=== PATIENT | female | born 1970 | race Caucasian/White ===

== ENCOUNTER 2016-09-15 00:41 | Inpatient (IN) | payer OTHER ==
[2016-09-15] VITALS (19 sets, daily range): BP systolic 100–127; BP diastolic 53–80; PULSE 60–85; RESP 11–25; TEMP 98.1; Ht 152.4 cm; Wt 65.5 kg
[~2016-09-15] VITALS: Ht 152.4 cm; Wt 65.5 kg
[~2016-09-15 00:41] MED LIST: SYN15 PO
[2016-09-15] MEDS ORDERED: ONDANSETRON 4 MG INJ IV STA (03:34)
[2016-09-15] MEDS ORDERED: morphine 4 MG/ML VIAL IV STA (03:34)
[2016-09-15] MEDS ORDERED: SOD CHLORIDE 0.9% 500 ML IV STA (03:34)
[2016-09-15 04:43] LABS: ADD SCAN DIFF NO
[2016-09-15 04:51] LABS: BASOPHILS % 0.2 % (0.0-2.0); EOSINOPHILS # 0.1 10^3/ul (0.0-0.5); EOSINOPHILS % 0.7 % (0.0-7.0); HEMATOCRIT 37.5 % (37.0-47.0); HEMOGLOBIN 12.8 g/dl (12.0-16.0); LYMPHOCYTES # 2.3 10^3/ul (0.8-2.9); LYMPHOCYTES % 26.3 % (15.0-51.0); MEAN CORPUSCULAR HEMOGLOBIN 31.1 pg (29.0-33.0); MEAN CORPUSCULAR HGB CONC 34.1 g/dl (32.0-37.0); MEAN PLATELET VOLUME 9.5 fl (7.4-10.4); MONOCYTE # 0.7 10^3/ul (0.3-0.9); MONOCYTES % 7.8 % (0.0-11.0); NEUTROPHIL # 5.8 10^3/ul (1.6-7.5); NEUTROPHILS % 64.8 % (39.0-77.0); PLATELET COUNT 292 10^3/UL (140-415); RED BLOOD COUNT 4.12 10^6/ul (4.20-5.40); RED CELL DISTRIBUTION WIDTH 11.9 % (11.5-14.5); WHITE BLOOD COUNT 8.9 10^3/ul (4.8-10.8)
[2016-09-15 04:53] LABS: ADD UMIC YES; URINE BILIRUBIN (Dip) NEGATIVE (NEGATIVE); URINE BLOOD (Dip) 1+ (NEGATIVE); URINE COLOR LT. YELLOW (YELLOW); URINE GLUCOSE (Dip) NEGATIVE (NEGATIVE); URINE KETONES (Dip) NEGATIVE (NEGATIVE); URINE LEUKOCYTE ESTERASE (Dip) NEGATIVE (NEGATIVE); URINE NITRITE (Dip) NEGATIVE (NEGATIVE); URINE TOTAL PROTEIN (Dip) NEGATIVE (NEGATIVE); URINE UROBILINOGEN (Dip) 0.2 E.U./dL (0.1-1.0)
--- NOTE | 2016-09-15 04:55 | ERA ---
ER Documentation Chief Complaint Date/Time DATE: 09/15/16 TIME: 04:54 Chief Complaint RUQ ABD PAIN THAT RADIATES UP THE CHEST, RT SHOULDER, RT BACK, SOB HPI This a 45 year from a medical quadrant abdominal pain that started 2 days ago. Is getting progressively worse. No fevers no chills. Pain is mild to moderate intensity. No other current complaints. ROS All systems reviewed and are negative except as per history of present illness. Medications Home Meds Reported Medications Levothyroxine Sodium* (Synthroid*) 150 Mcg Tablet, 150 MCG PO DAILY, 0 Refills 08/09/10 Allergies Allergies: Coded Allergies: No Known Drug Allergies (Verified Allergy, Mild, 07/14/11) PMhx/Soc History of Surgery: Yes (C SECTION X 2, TUBAL LIGATION ) Anesthesia Reaction: No Hx Neurological Disorder: No Hx Respiratory Disorders: No Hx Cardiac Disorders: No Hx Psychiatric Problems: No Hx Miscellaneous Medical Probl: Yes (HYPOTHYROIDISM ) Hx Alcohol Use: No Hx Substance Use: No Hx Tobacco Use: No Smoking Status: Never smoker Physical Exam Vitals Vital Signs Date Time Temp Pulse Resp B/P Pulse Ox O2 Delivery O2 Flow Rate FiO2 09/15/16 04:15 98.3 73 17 113/75 100 Room Air 09/15/16 00:45 98.4 89 22 130/80 98 Physical Exam Const: [] Head: Atraumatic Eyes: Normal Conjunctiva ENT: Normal External Ears, Nose and Mouth. Neck: Full range of motion..~ No meningismus. Resp: Clear to auscultation bilaterally Cardio: Regular rate and rhythm, no murmurs Abd: Soft, non tender, non distended. Normal bowel sounds Skin: No petechiae or rashes Back: No midline or flank tenderness Ext: No cyanosis, or edema Neur: Awake and alert Psych: Normal Mood and Affect Results 24 hrs Current Medications Medications (Trade) Dose Ordered Sig/Sean Route PRN Reason Start Time Stop Time Status Last Admin Dose Admin Sodium Chloride (NS) 500 ml @ 500 mls/hr Q1H STAT IV 09/15/16 03:34 09/15/16 04:33 DC 09/15/16 04:16 Morphine Sulfate (morphine) 4 mg ONCE STAT IV 09/15/16 03:34 09/15/16 03:36 DC 09/15/16 04:16 Ondansetron HCl (Zofran Inj) 4 mg ONCE STAT IV 09/15/16 03:34 09/15/16 03:36 DC 09/15/16 04:15 Procedures/MDM Medical decision-making: The patient has what looks to be acute cholecystitis. Patient will be admitted to hospitalist. Ben has been consulted. Departure Diagnosis: Primary Impression: Cholecystitis Condition: Serious CECILIA MALLORY Sep 15, 2016 04:54
--- NOTE | 2016-09-15 05:02 | RADRPT ---
PROCEDURE: Ultrasound of the abdomen. CLINICAL INDICATION: Right upper quadrant pain. TECHNIQUE: Sonographic images of the abdomen were performed. COMPARISON: No pertinent prior examinations were submitted for comparison. FINDINGS: Liver: The liver is normal in echogencity and size measuring approximately 15.3 cm. The hepatic vei ns and portal veins are patent with appropriate directional flow. No intrahepatic ductal dilatation is seen. Gallbladder: Multiple stones are noted within the gallbladder. There is gallbladder wall thickenin g measuring up to 4 mm along with some pericholecystic free fluid. The common duct measures 3.6 mm. Pancreas: There is limited evaluation of the pancreatic body and tail. The visualized portions of the pancreas are unremarkable. Kidneys: The right kidney measures 10 point 1 cm. There is normal corticomedullary differentiation. There is no evidence of renal calculus or hydronephrosis. IVC: The visualized portion of the inferior vena cava is unremarkable. Aorta: Normal in size. Free fluid: None. IMPRESSION: Cholelithiasis with gallbladder wall thickening and pericholecystic fluid suggestive of cholecystiti s. RPTAT: HIKT .Jona Jackson MD, MD Date Time Electronically viewed and signed by .Jona Jackson MD, MD on 09/15/2016 05:01 .T/
[2016-09-15 05:05] LABS: ALBUMIN 3.9 g/dl (3.3-4.9)
[2016-09-15 05:06] LABS: POTASSIUM 3.8 mmol/L (3.5-5.1)
--- NOTE | 2016-09-15 05:07 | HP ---
Date/Time of Note Date/Time of Note DATE: 09/15/16 TIME: 05:06 Assessment/Plan VTE Prophylaxis VTE Prophylaxis Intervention: ambulation Assessment/Plan Assessment/Plan 1) Acute Cholecystitis with Cholelithiasis - Admit to Med Surg Unit - NPO, but may have her Thyroid medication with a sip of water. - CONSULT: General Surgery - Dr. Contreras notified by the ER earlier today. HPI/ROS Admit Date/Time Admit Date/Time 09/15/16 Hx of Present Illness Acute Cholecystitis ROS Chief Complaint Abdominal Pain HPI This a 45 year old female presents with moderate to severe pain for the past several days. Getting worse and more constant. Decreased appetite. No nausea, vomiting, fever or chills. No history of same. No medical problems other than Hypothyroidism. ER Physician already made arrangements with Dr. Contreras to see her this morning. Constitutional: No chills, No febrile Eyes: no complaints ENT: No congestion, No dysphagia, No sore throat Respiratory: shortness of breath (Just if sh takes a deep breath, it hurts her right side.), No cough Cardiovascular: No chest pain, No palpitations Gastrointestinal: pain (See HPI), No diarrhea, No nausea, No vomiting Genitourinary: No dysuria, No hematuria Musculoskeletal: No back pain, No neck pain Skin: No erythema, No pruritis, No rash Neurologic: No dizziness, No headache, No syncope Endocrine: No polydypsia, No polyuria Lymphatic: No adenopathy, No tender nodes PMH/Family/Social Past Medical History Medical History: hypothyroid Past Surgical History x 2; BTL Social History Alcohol Use: none Smoking Status: Never smoker Drug Use: none Exam/Review of Systems Vital Signs Vitals Date Time Temp Pulse Resp B/P Pulse Ox O2 Delivery O2 Flow Rate FiO2 09/15/16 04:15 98.3 73 17 113/75 100 Room Air 09/15/16 00:45 98.4 89 22 130/80 98 Exam Constitutional: alert, oriented, well developed Head: atraumatic, normocephalic Eyes: EOMI, nl sclera ENMT: mucosa pink and moist, nl external ears & nose, nl lips & teeth Neck: non-tender, supple Respiratory: clear to auscultation, normal air movement Cardiovascular: nl pulses, regular rate and rhythm Gastrointestinal: rebound or guarding (Patient is medicated and has minimal pain and tenderness.), soft, tender (Right upper quadrant) Musculoskeletal: muscle tone (normal), nl extremities to inspection Extremities: normal pulses, No edema Neurological: PRODUCTION FLOATER II-XII intact (grossly), nl speech, nl strength Skin: nl turgor (Normal moisture and temperature. No visible rash.) Lymph: nl lymph nodes (Cervical) Labs Result Diagram: 09/15/16 0415 Medications Medications Home Meds Reported Medications Levothyroxine Sodium* (Synthroid*) 150 Mcg Tablet, 150 MCG PO DAILY, 0 Refills 08/09/10 Procedures Procedures PROCEDURE: Ultrasound of the abdomen. CLINICAL INDICATION: Right upper quadrant pain. TECHNIQUE: Sonographic images of the abdomen were performed. COMPARISON: No pertinent prior examinations were submitted for comparison. FINDINGS: Liver: The liver is normal in echogencity and size measuring approximately 15.3 cm. The hepatic veins and portal veins are patent with appropriate directional flow. No intrahepatic ductal dilatation is seen. Gallbladder: Multiple stones are noted within the gallbladder. There is gallbladder wall thickening measuring up to 4 mm along with some pericholecystic free fluid. The common duct measures 3.6 mm. Pancreas: There is limited evaluation of the pancreatic body and tail. The visualized portions of the pancreas are unremarkable. Kidneys: The right kidney measures 10 point 1 cm. There is normal corticomedullary differentiation. There is no evidence of renal calculus or hydronephrosis. IVC: The visualized portion of the inferior vena cava is unremarkable. Aorta: Normal in size. Free fluid: None. IMPRESSION: Cholelithiasis with gallbladder wall thickening and pericholecystic fluid suggestive of cholecystitis. ELIEZER MCCRARY DO Sep 15, 2016 05:07 Levothyroxine Sodium* (Synthroid*) 150 Mcg Tablet, 150 MCG PO DAILY, 0 Refills 08/09/10 Procedures Procedures PROCEDURE: Ultrasound of the abdomen. CLINICAL INDICATION: Right upper quadrant pain. TECHNIQUE: Sonographic images of the abdomen were performed. COMPARISON: No pertinent prior examinations were submitted for comparison. FINDINGS: Liver: The liver is normal in echogencity and size measuring approximately 15.3 cm. The hepatic veins and portal veins are patent with appropriate directional flow. No intrahepatic ductal dilatation is seen. Gallbladder: Multiple stones are noted within the gallbladder. There is gallbladder wall thickening measuring up to 4 mm along with some pericholecystic free fluid. The common duct measures 3.6 mm. Pancreas: There is limited evaluation of the pancreatic body and tail. The visualized portions of the pancreas are unremarkable. Kidneys: The right kidney measures 10 point 1 cm. There is normal corticomedullary differentiation. There is no evidence of renal calculus or hydronephrosis. IVC: The visualized portion of the inferior vena cava is unremarkable. Aorta: Normal in size. Free fluid: None.
[2016-09-15 05:08] LABS: BILIRUBIN,INDIRECT 0.2 mg/dl (0-1.1); BILIRUBIN,TOTAL 0.2 mg/dl (0.2-1.3); CREATININE 0.58 mg/dl (0.44-1.00)
[2016-09-15 05:09] LABS: ALBUMIN/GLOBULIN RATIO 1.02; CALCIUM 9.5 mg/dl (8.4-10.2); TOTAL PROTEIN 7.7 g/dl (6.1-8.1)
[2016-09-15 05:12] LABS: BACTERIA,URINE FEW; SQUAMOUS EPITHELIAL CELL,UR FEW
[2016-09-15] MEDS ORDERED: ONDANSETRON 4 MG INJ IV PRN ×3 (05:30→19:00)
[2016-09-15] MEDS ORDERED: PIPER-TAZO 3.375 GM IV (PMX) 100 ML IVPB ONE (05:30)
[2016-09-15] MEDS ORDERED: morphine 2 MG INJ IV PRN ×2 (05:30→19:00)
[2016-09-15] MEDS ORDERED: NACL 0.9% 3 ML SYG IV SCH (05:30)
[2016-09-15] MEDS: SOD CHLORIDE 0.9% 1,000 ML IV SCH ×3 (05:38→17:29)
[2016-09-15] MEDS: LEVOTHYROXINE 150 MCG TAB PO SCH (08:00)
[2016-09-15] MEDS: FAMOTIDINE 20 MG INJ IV SCH ×2 (08:24→21:12)
[2016-09-15] MEDS ORDERED: LIDOCAINE 2% (SDV) 5 ML INJ ONE (18:54)
[2016-09-15] MEDS ORDERED: PROPOFOL 20 ML ONE (18:54)
[2016-09-15] MEDS ORDERED: ROCURONIUM 50 MG INJ ONE (18:54)
[2016-09-15] MEDS ORDERED: CEFAZOLIN 1 GM INJ ONE (18:54)
[2016-09-15] MEDS ORDERED: SUCCINYLCHOLINE CHLORIDE 100 MG/5 ML SYG IV ONE (18:54)
[2016-09-15] MEDS ORDERED: MIDAZOLAM 1 MG/ML 2 ML INJ ONE (18:54)
[2016-09-15] MEDS ORDERED: KETOROLAC 15 MG INJ IV ONE (19:00)
[2016-09-15] MEDS ORDERED: PROCHLORPERAZINE 10 MG INJ IV PRN (19:00)
[2016-09-15] MEDS ORDERED: MEPERIDINE 25 MG INJ IV PRN (19:00)
[2016-09-15] MEDS ORDERED: METOCLOPRAMIDE 10 MG INJ IV PRN (19:00)
[2016-09-15] MEDS ORDERED: DIPHENHYDRAMINE 50 MG INJ IV PRN (19:00)
[2016-09-15] MEDS ORDERED: FENTAnyl 50 MCG/ML VIAL IV PRN (19:00)
[2016-09-15] MEDS ORDERED: ACETAMINOPHEN 325 MG TAB PO PRN (19:00)
[2016-09-15] MEDS ORDERED: HYDROmorphONE (0.2 MG/ML) 10ML SYG IV PRN ×2 (19:00)
[2016-09-15] MEDS ORDERED: OXYCODONE/ACETAMINOPHEN (5/325) TAB PO PRN (19:00)
[2016-09-15] MEDS ORDERED: ONDANSETRON 4 MG INJ ONE (19:22)
[2016-09-15] MEDS ORDERED: DEXAMETHASONE 4 MG/ML 1 ML INJ ONE (19:22)
[2016-09-15] MEDS ORDERED: BUPIVACAINE 0.25% (MPF) 30 ML INJ INJ ONE (19:36)
[2016-09-15] MEDS ORDERED: NEOSTIGMINE 3 MG/3 ML SYRINGE ONE (19:38)
[2016-09-15] MEDS ORDERED: GLYCOPYRROLATE 0.4 MG INJ ONE (19:38)
--- NOTE | 2016-09-15 20:27 | CONS ---
DATE OF ADMISSION: 09/15/2016 DATE OF CONSULTATION: 09/15/2016 HISTORY OF PRESENT ILLNESS: Ms. Whitehead is a 45-year-old female who presented to [facility] ER last night due to abdominal pain and epigastric, right upper quadrant lasting for a few days. D enies fevers or chills. Had nausea, but no emesis. Her workup was consistent with acute cholecysti tis, and I was called for consultation. PAST MEDICAL HISTORY: Significant for hypothyroidism. MEDICATIONS: Synthroid. ALLERGIES: NO KNOWN DRUG ALLERGIES. PAST SURGICAL HISTORY: x2. SOCIAL HISTORY: She drinks occasionally. Denies smoking or drug use. PHYSICAL EXAMINATION: GENERAL: She is a well-nourished, well-developed female in no apparent distress. VITAL SIGNS: She is afebrile. Vital signs stable. CHEST: Clear to auscultation bilaterally. HEART: Regular rhythm. ABDOMEN: Soft, nontender, nondistended. IMAGING: Her ultrasound reveals cholelithiasis and pericholecystic fluid as well as gallbladder wal l thickening suggestive of cholecystitis. LABORATORY DATA: Show a white count of 9, hematocrit 38, and platelets of 292. Sodium 143, potassi um 3.8, chloride 104, CO2 of 28, BUN and creatinine 17 and 0.6, glucose 95. LFTs are within normal limits. ASSESSMENT AND PLAN: Ms. Whitehead is a 45-year-old female with acute cholecystitis versus biliary col ic. I discussed proceeding with surgery on this admission versus medical management. The patient w ishes to proceed with surgery. I discussed laparoscopic, possible open cholecystectomy, possible ch olangiogram with the patient. All benefits, risks, alternatives were discussed in detail. Question s answered. The patient elected to proceed. Dictated By: MALA RASHID MD MAL/NTS Conf#: [id number] DID#: [id number] CC: ELIEZER MCCRARY MD;*End*
--- NOTE | 2016-09-15 20:47 | OPR ---
DATE OF OPERATION: 09/15/2016 PREOPERATIVE DIAGNOSIS: Cholecystitis. POSTOPERATIVE DIAGNOSIS: Cholecystitis. PROCEDURE: Laparoscopic cholecystectomy. SURGEON: Mala Rashid MD TIER LIFT TRUCK OPERATOR: None. ANESTHESIA: General endotracheal. ANESTHESIOLOGIST: Dr. Wharton ESTIMATED BLOOD LOSS: Minimal. COMPLICATIONS: None. SPECIMENS: Gallbladder. FINDINGS: Acute cholecystitis and gallbladder filled with stones. INDICATIONS: Ms. Whitehead is a 45-year-old female who developed epigastric and right upper quadrant p ain for 2 days. She came to the ER at [facility] where workup was consistent with acute ch olecystitis. I discussed proceeding with laparoscopic cholecystectomy on this admission versus IV a ntibiotics and medical management. The patient wished to proceed. We discussed laparoscopic, possi ble open cholecystectomy, possible cholangiogram. All benefits, risks, alternatives were discussed in detail, questions answered. The patient wished to proceed. DESCRIPTION OF PROCEDURE: The patient was brought to the operating room and placed supine on the ta ble. After preoperative antibiotics and SCDs were placed, the patient was intubated and the abdomen was cleaned, prepped, and draped in sterile fashion. All incisions were infiltrated with 1% lidoca ine with epinephrine and 0.5% Marcaine prior to incision. An 11 mm incision was made on the umbilic us. Using a 5 mm laparoscope-containing trocar, the abdomen was entered under direct vision and ins ufflated to 15 mmHg of CO2. The following trocars were then placed under direct visualization: the right lower quadrant 5 mm, her right upper quadrant 5 mm, and subxiphoid 5 mm. The 5 mm umbilical t rocar was exchanged to an 11 mm under direct vision. I identified my gallbladder. It was edematous and consistent with acute cholecystitis. I was able to grasp the gallbladder at the fundus and ret ract it over the liver. There were some adhesions in Raul pouch, which were taken down with lena ctrocautery, thus exposing Raul pouch. I then scored the peritoneum under Raul's medially a nd laterally and I was able to dissect out and skeletonize my cystic duct and artery. I dissected t he gallbladder off the cystic plate of the liver and thus had my critical view of safety where I saw my duct and artery with no intervening structures. I clipped the duct and artery each individually , twice proximally and once distally, and divided and removed the gallbladder from the gallbladder f silvino with electrocautery, placed it in an EndoCatch bag, and removed it from the 12 mm trocar site. I visualized my gallbladder fossa. There was some oozing noted, which was controlled with electroc autery. At this point, I irrigated out the right upper quadrant until the effluent was clear. I vi sualized my gallbladder again. There was no evidence of bleeding or bile staining. I then removed all trocars. The fascia of the 12 mm trocar site was closed with 0 Vicryl. Skin incisions were all closed with 4-0 Monocryl, Mastisol, Steri-Strips, a 2x2 gauze, and Tegaderm was placed over the umb ilical incision only. The patient tolerated procedure well, was extubated in the OR, and transferre d to recovery room in stable condition. Dictated By: MALA RASHID MD MAL/NTS Conf#: [id number] DID#: [id number] CC: ELIEZER MCCRARY MD;*EndCC*
[2016-09-15] MEDS: D5-NS + KCL 20 MEQ 1,000 ML IV SCH (21:12)
[2016-09-16] VITALS: BP 111/56; RESP 16
[2016-09-16] MEDS: PIPER-TAZO 3.375 GM IV (PMX) 100 ML IVPB SCH ×4 (01:05→17:28)
[2016-09-16] MEDS: SOD CHLORIDE 0.9% 1,000 ML IV SCH ×2 (01:08→08:29)
[2016-09-16] MEDS: OXYCODONE/ACETAMINOPHEN (5/325) TAB PO PRN ×3 (01:19→18:11)
[2016-09-16] MEDS: D5-NS + KCL 20 MEQ 1,000 ML IV SCH ×2 (04:55→17:28)
[2016-09-16 06:10] LABS: ADD SCAN DIFF NO
[2016-09-16 06:32] LABS: HEMATOCRIT 34.8 % (37.0-47.0); MEAN CORPUSCULAR HEMOGLOBIN 31.3 pg (29.0-33.0); MEAN CORPUSCULAR HGB CONC 34.5 g/dl (32.0-37.0); MEAN CORPUSCULAR VOLUME 90.9 fl (82.0-101.0); MEAN PLATELET VOLUME 9.5 fl (7.4-10.4); MONOCYTE # 0.2 10^3/ul (0.3-0.9); MONOCYTES % 3.3 % (0.0-11.0); NEUTROPHIL # 6.1 10^3/ul (1.6-7.5); NEUTROPHILS % 83.6 % (39.0-77.0); PLATELET COUNT 274 10^3/UL (140-415); RED BLOOD COUNT 3.83 10^6/ul (4.20-5.40); RED CELL DISTRIBUTION WIDTH 11.8 % (11.5-14.5); WHITE BLOOD COUNT 7.3 10^3/ul (4.8-10.8)
[2016-09-16 06:33] LABS: ALBUMIN 3.8 g/dl (3.3-4.9)
[2016-09-16 06:34] LABS: POTASSIUM 3.9 mmol/L (3.5-5.1)
[2016-09-16 06:36] LABS: ALBUMIN/GLOBULIN RATIO 1.02; BILIRUBIN,INDIRECT 0.3 mg/dl (0-1.1); BILIRUBIN,TOTAL 0.3 mg/dl (0.2-1.3); CREATININE 0.52 mg/dl (0.44-1.00); TOTAL PROTEIN 7.5 g/dl (6.1-8.1)
[2016-09-16 06:37] LABS: CALCIUM 8.8 mg/dl (8.4-10.2)
[2016-09-16] MEDS: LEVOTHYROXINE 150 MCG TAB PO SCH ×2 (06:47→08:00)
[2016-09-16] MEDS: ENOXAPARIN 40 MG/0.4 ML SYG SC SCH (07:00)
[2016-09-16 07:26] VITALS: BP 90/50; RESP 22
[2016-09-16] MEDS: FAMOTIDINE 20 MG INJ IV SCH ×2 (08:38→20:41)
--- NOTE | 2016-09-16 09:47 | PN ---
Date/Time of Note Date/Time of Note DATE: 09/16/16 TIME: 09:44 Assessment/Plan VTE Prophylaxis VTE Prophylaxis Intervention: SCD's Lines/Catheters IV Catheter Type (from Nrsg): Peripheral IV Urinary Cath still in place: No Assessment/Plan Assessment/Plan 1) Acute Cholecystitis with Cholelithiasis s/p Laproscopic cholecystectomy, POD # 1 2. intractable abdominal pain, due to # 1 Plan: continue curren IVF Bolus for hypotension ambulate pt in [facility] general surgery help Subjective 24 Hr Interval Summary Free Text/Dictation BP low, pt ate today Am, ambulating ,still c/o severe abdominal pain Exam/Review of Systems Vital Signs Vitals Vital Signs Date Time Temp Pulse Resp B/P Pulse Ox O2 Delivery O2 Flow Rate FiO2 09/16/16 07:26 98.3 57 22 90/50 96 09/15/16 20:46 Room Air 09/15/16 20:06 6.0 Intake and Output 09/15/16 09/15/16 09/16/16 15:00 23:00 07:00 Intake Total 800 ml 1800 ml 1020 ml Output Total 5 ml 4 ml Balance 800 ml 1795 ml 1016 ml Exam Constitutional: alert, oriented, well developed Head: atraumatic, normocephalic Eyes: EOMI, nl sclera ENMT: mucosa pink and moist, nl external ears & nose, nl lips & teeth Neck: non-tender, supple Respiratory: clear to auscultation, normal air movement Cardiovascular: nl pulses, regular rate and rhythm Gastrointestinal: rebound or guarding (Patient is medicated and has minimal pain and tenderness.), soft, tender (Right upper quadrant) Musculoskeletal: muscle tone (normal), nl extremities to inspection Extremities: normal pulses, No edema Neurological: 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 No visible rash.) Lymph: nl lymph nodes (Cervical) Results Result Diagram: 09/16/16 0540 09/16/16 0540 Results 24 hrs Laboratory Tests Test 09/16/16 05:40 Alanine Aminotransferase (ALT/SGPT) 122 H Albumin 3.8 Albumin/Globulin Ratio 1.02 Alkaline Phosphatase 63 Anion Gap 14 Aspartate Amino Transf (AST/SGOT) 128 H Basophils # 0.0 Basophils % 0.0 Blood Urea Nitrogen 9 Calcium Level 8.8 Carbon Dioxide Level 28 Chloride Level 102 Creatinine 0.52 Direct Bilirubin 0.00 Eosinophils # 0.0 Eosinophils % 0.0 Globulin 3.70 H Glucose Level 110 Hematocrit 34.8 L Hemoglobin 12.0 Hemoglobin A1c 5.2 Indirect Bilirubin 0.3 Lymphocytes # 1.0 Lymphocytes % 13.0 L Magnesium Level 1.7 Mean Corpuscular Hemoglobin 31.3 Mean Corpuscular Hemoglobin Concent 34.5 Mean Corpuscular Volume 90.9 Mean Platelet Volume 9.5 Monocytes # 0.2 L Monocytes % 3.3 Neutrophils # 6.1 Neutrophils % 83.6 H Nucleated Red Blood Cells # 0.0 Nucleated Red Blood Cells % 0.0 Platelet Count 274 Potassium Level 3.9 Red Blood Count 3.83 L Red Cell Distribution Width 11.8 Sodium Level 140 Total Bilirubin 0.3 Total Protein 7.5 White Blood Count 7.3 Medications Medications Current Medications Sodium Chloride (NS) 1,000 ml @ 100 mls/hr Q10H IV Last administered on 17:29; Admin Dose 100 MLS/HR; Start 09/15/16 at 05:08 Ondansetron HCl (Zofran Inj) 4 mg Q6H PRN IV NAUSEA AND/OR VOMITING; Start at 05:30 Morphine Sulfate (morphine) 2 mg Q4H PRN IV SEVERE PAIN LEVEL 7-10; Start 09/15 at 05:30 Famotidine 20 mg 20 mg Q12 IV Last administered on 09/16/16 08:38; Admin Dose 20 MG; Start 09/15/16 at 09:00 Piperacillin Sod/ Tazobactam Sod (Zosyn 3.375gm/ 100 ml (Pmx)) 100 ml @ 200 mls /hr Q6 IVPB Last administered on 09/16/16 06:47; Admin Dose 200 MLS/HR; Start 09/16/16 at 00:00 Ondansetron HCl (Zofran Inj) 4 mg Q6H PRN IV NAUSEA AND/OR VOMITING; Start at 19:00 Morphine Sulfate (morphine) 2 mg Q2H PRN IV BREAKTHROUGH PAIN; Start 09/15/16 at 19:00 Acetaminophen (Tylenol Tab) 650 mg Q6H PRN PO PAIN AND OR ELEVATED TEMP; Start 09/15/16 at 19:00 Oxycodone/ Acetaminophen 1 tab 1 tab Q6H PRN PO PAIN LEVEL 6-10 Last administered on 09/16/16 01:19; Admin Dose 1 TAB; Start 09/15/16 at 19:00 Potassium Chloride/Dextrose/ Sod Cl (D5-NS + KCl 20 Meq) 1,000 ml @ 100 mls/hr Q10H IV Last administered on 09/15/16 21:12; Admin Dose 100 MLS/HR; Start at 18:55 Enoxaparin Sodium (Lovenox) 40 mg DAILY@07 SC ; Start 09/16/16 at 07:00 SUKHJINDER EAST MD Sep 16, 2016 09:47
--- NOTE | 2016-09-16 09:48 | PDOCDIS ---
Discharge Instructions CONDITION Patient Condition: Good HOME CARE INSTRUCTIONS: Special Diet: CARB CONTROLLED ACTIVITY: Activity Restrictions: Slowly Increase Activity Rest between Activity Avoid heavy lifting FOLLOW UP/APPOINTMENTS Appointments follow up with her own PMD through HMO insurance in 1-2 week. Follow up with General surery in 1- 2week after discharge SUKHJINDER EAST MD Sep 16, 2016 09:48
[2016-09-16] MEDS ORDERED: ESOM20CA PO (09:51)
[2016-09-16] MEDS ORDERED: Oxycodone/Acetamin (5/325) PO (09:51)
[2016-09-16] MEDS ORDERED: METO10TA92 PO (09:51)
[2016-09-16] MEDS ORDERED: DOCU-144 PO (09:51)
--- NOTE | 2016-09-16 09:53 | PDOCDIS ---
Discharge Instructions CONDITION Patient Condition: Good HOME CARE INSTRUCTIONS: Special Diet: CARB CONTROLLED ACTIVITY: Activity Restrictions: Slowly Increase Activity Rest between Activity Avoid heavy lifting Avoid Heavy Housework FOLLOW UP/APPOINTMENTS Appointments follow up with her own PMD through HMO insurance in 1-2 week. Follow up with in 1-2 week after discharge SCHOOL/WORK RELEASE May return to School/Work on: Sep 22, 2016 SUKHJINDER EAST MD Sep 16, 2016 09:53
[2016-09-16 15:00] VITALS: BP 104/58
[2016-09-16 20:00] VITALS: BP 111/69; PULSE 66; RESP 20
[2016-09-17] MEDS: PIPER-TAZO 3.375 GM IV (PMX) 100 ML IVPB SCH ×3 (00:03→12:00)
[2016-09-17] MEDS: ENOXAPARIN 40 MG/0.4 ML SYG SC SCH ×2 (07:00→07:34)
[2016-09-17] MEDS: OXYCODONE/ACETAMINOPHEN (5/325) TAB PO PRN (07:18)
[2016-09-17] MEDS: LEVOTHYROXINE 150 MCG TAB PO SCH (07:25)
[2016-09-17 08:01] VITALS: BP 86/47; RESP 18
[2016-09-17 08:16] VITALS: BP 104/60; PULSE 60
[2016-09-17] MEDS: FAMOTIDINE 20 MG INJ IV SCH (08:24)
--- NOTE | 2016-09-17 10:09 | PN ---
Date/Time of Note Date/Time of Note DATE: 09/17/16 TIME: 10:08 Assessment/Plan VTE Prophylaxis VTE Prophylaxis Intervention: SCD's Lines/Catheters IV Catheter Type (from Nrsg): Saline Lock Urinary Cath still in place: No Assessment/Plan Assessment/Plan 1) Acute Cholecystitis with Cholelithiasis s/p Laproscopic cholecystectomy, POD # 1 2. intractable abdominal pain, due to # 1 Plan: d/c home today Subjective 24 Hr Interval Summary Free Text/Dictation doing better, tolerated diet well, Exam/Review of Systems Vital Signs Vitals Vital Signs Date Time Temp Pulse Resp B/P Pulse Ox O2 Delivery O2 Flow Rate FiO2 09/17/16 08:16 60 104/60 09/17/16 08:01 97.7 18 97 09/16/16 20:00 Room Air 09/15/16 20:06 6.0 Intake and Output 09/16/16 09/16/16 09/17/16 15:00 23:00 07:00 Intake Total 450 ml 1260 ml 1090 ml Balance 450 ml 1260 ml 1090 ml Exam Constitutional: alert, oriented, well developed Head: atraumatic, normocephalic Eyes: EOMI, nl sclera ENMT: mucosa pink and moist, nl external ears & nose, nl lips & teeth Neck: non-tender, supple Respiratory: clear to auscultation, normal air movement Cardiovascular: nl pulses, regular rate and rhythm Gastrointestinal: rebound or guarding (Patient is medicated and has minimal pain and tenderness.), soft, tender (Right upper quadrant) Musculoskeletal: muscle tone (normal), nl extremities to inspection Extremities: normal pulses, No edema 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 No visible rash.) Lymph: nl lymph nodes (Cervical) Results Result Diagram: 09/16/16 0540 09/16/16 0540 Medications Medications Current Medications Morphine Sulfate (morphine) 2 mg Q4H PRN IV SEVERE PAIN LEVEL 7-10; Start 09/15 at 05:30 Famotidine 20 mg 20 mg Q12 IV Last administered on 09/17/16t 08:24; Admin Dose 20 MG; Start 09/15/16 at 09:00 Piperacillin Sod/ Tazobactam Sod (Zosyn 3.375gm/ 100 ml (Pmx)) 100 ml @ 200 mls /hr Q6 IVPB Last administered on 09/17/16 06:15; Admin Dose 200 MLS/HR; Start 09/16/16 at 00:00 Ondansetron HCl (Zofran Inj) 4 mg Q6H PRN IV NAUSEA AND/OR VOMITING; Start at 19:00 Morphine Sulfate (morphine) 2 mg Q2H PRN IV BREAKTHROUGH PAIN; Start 09/15/16 at 19:00 Acetaminophen (Tylenol Tab) 650 mg Q6H PRN PO PAIN AND OR ELEVATED TEMP; Start 09/15/16 at 19:00 Oxycodone/ Acetaminophen 1 tab 1 tab Q6H PRN PO PAIN LEVEL 6-10 Last administered on 09/17/16 07:18; Admin Dose 1 TAB; Start 09/15/16 at 19:00 Potassium Chloride/Dextrose/ Sod Cl (D5-NS + KCl 20 Meq) 1,000 ml @ 70 mls/hr [id number] IV Last administered on 09/16/16 17:28; Admin Dose 70 MLS/HR; Start at 18:55 Enoxaparin Sodium (Lovenox) 40 mg DAILY@07 SC ; Start 09/16/16 at 07:00 SUKHJINDER EAST MD Sep 17, 2016 10:09
[2016-09-17] MEDS: D5-NS + KCL 20 MEQ 1,000 ML IV SCH (10:29)
--- NOTE | 2016-09-22 16:14 | DS ---
DATE OF ADMISSION: 09/15/2016 DATE OF DISCHARGE: 09/17/2016 FINAL DISCHARGE DIAGNOSES: 1. Acute cholecystitis with cholelithiasis, status post laparoscopic cholecystectomy during this ho spitalization. 2. Intractable abdominal pain secondary to acute cholecystitis. CONSULTATIONS DONE DURING THIS HOSPITALIZATION: General surgery consult Dr. Tylor Contreras. PROCEDURE/OPERATIONS PERFORMED DURING THIS HOSPITALIZATION: The patient underwent laparoscopic chol ecystectomy for acute cholecystitis during this hospitalization. HOSPITAL COURSE: This is a 45-year-old female who has no significant past medical history presented with right upper quadrant abdominal pain, nausea, vomiting. She was diagnosed with acute cholecyst itis with cholelithiasis. Her case was evaluated by general surgery, Dr. Tylor Contreras and recomme nded to have surgery. The patient underwent laparoscopic cholecystectomy. Postoperatively, she rem ained hemodynamically stable. She was given IV Ancef postoperatively for postoperative prophylaxis. She remained afebrile. White count was normal and after tolerating p.o. diet she was cleared for discharge to home and was discharged to home with prescriptions of antibiotics upon discharge. DISPOSITION: To home. DISCHARGE CONDITION: Stable and improved compared to admission. DISCHARGE ACTIVITIES: As tolerated, slowly resume to the normal baseline activity. DISCHARGE DIET: A soft consistency low fat diet. DISCHARGE MEDICATIONS: 1. The patient is given prescriptions of Colace. 2. Reglan. 3. Oxycodone p.r.n. pain. DISCHARGE FOLLOWUP AND INSTRUCTIONS: 1. The patient is to follow up with her own primary care doctor through her HMO insurance 1 to 2 we eks after discharge. 2. The patient is to follow up with general surgery, Dr. Contreras, as outpatient in 1 to 2 weeks afte r discharge. She has been explained about the discharge plan and followup instructions. She unders tood and verbalized understanding. Dictated By: SUKHJINDER EAST MD, KP/CODY Conf#: [id number] DID#: [id number]
== END 2016-09-17 13:25 | disposition home or self-care (01) | DRG 419 ==
LOC: E/R 00:41 → MS2 04:52
PROVIDERS: ADMIT Family Medicine; ATTEND Family Medicine
PROC: 0FT44ZZ Resection of Gallbladder, Percutaneous Endoscopic Approach (ICD-10-PCS; principal; 2016-09-15 19:00)
DX: K80.00 Calculus of gallbladder with acute cholecystitis without obstruction (principal); I95.9 Hypotension, unspecified; E03.9 Hypothyroidism, unspecified; K82.8 Other specified diseases of gallbladder
CPT/HCPCS: 36415; 76705; 80053; 81001; 81003; 83036; 83690; 83735; 85025; 88304; 96361; 96365; 96375; J0330; J0690; J1100; J1650; J1885; J2175; J2250; J2270; J2405; J2543; J2710; J2765; J3010; J3480; J7030; J7040